=== PATIENT | male | born 1955 ===

== ENCOUNTER 2021-01-18 08:00 | Inpatient (IN) | payer OTHER ==
[~2021-01-18] VITALS: Ht 177.8 cm; Wt 86.2 kg
[2021-01-18] MEDS ORDERED: COZAAR50 MG PO (09:06)
[2021-01-26] MEDS ORDERED: MIRALAX17 GM PO (07:17)
[2021-01-26] MEDS ORDERED: KETO10TA2 PO (07:17)
[2021-01-26] MEDS ORDERED: NEURONTIN300 MG PO (07:17)
[2021-01-26] MEDS ORDERED: ULTRAM50 MG PO (07:17)
[2021-01-26] MEDS ORDERED: TYLENOL ARTHRI650 MG PO (07:17)
[2021-01-26] MEDS ORDERED: PEPCID20 MG PO (07:17)
== END 2021-01-26 15:54 | disposition home or self-care (01) | DRG 355 ==
LOC: O/R 01-25 07:00 → SURH 01-25 07:00
PROVIDERS: ADMIT Surgery; ATTEND Surgery
PROC: 0WUF4JZ Supplement Abdominal Wall with Synthetic Substitute, Percutaneous Endoscopic Approach (ICD-10-PCS; 2021-01-25)
PROC: 0WUF4JZ Supplement Abdominal Wall with Synthetic Substitute, Percutaneous Endoscopic Approach (ICD-10-PCS; principal; 2021-01-25 09:30)
DX: K43.0 Incisional hernia with obstruction, without gangrene (principal); K42.0 Umbilical hernia with obstruction, without gangrene; Z20.822 Contact with and (suspected) exposure to COVID-19